=== PATIENT | female | born 2000 | race American Indian/Alaskan Native ===

== ENCOUNTER 2019-08-04 10:09 | Emergency (ER) | payer MEDICAID ==
--- NOTE | 2019-08-04 13:40 | Emergency Department Report ---
ED Female HPI - General Chief complaint: Abdominal Pain Stated complaint: 15WKS PREG/STOMACH PAIN Time Seen by Provider: 08/04/19 12:35 Source: patient Mode of arrival: Ambulatory Limitations: No Limitations - History of Present Illness Initial comments: This is a 18-year-old -[place] female who presents to the emergency room with pelvic pain, vaginal discharge, hematuria, and urinary frequency for 1 day. Patient states she is 15 weeks . She is followed by an [facility] at [place]. Her last menstrual period was 03/23/2019, 1. She denies dysuria, fever, chills, back pain, nausea, or vomiting. MD Complaint: vaginal discharge, pelvic pain Onset/Timin -: days(s) Location: suprapubic Radiation: non-radiating Severity: moderate Severity scale (0 -10): 5 Quality: burning Worsens with: urination Are you Now?: Yes (15 weeks) Last Menstrual Period: 03/23/19 EDC: 12/28/19 Associated Symptoms: vaginal discharge, vaginal bleeding, abdominal pain, hematuria. denies: nausea/vomiting, fever/chills, headaches, dysuria, shortness of breath, weakness - Related Data Sexually active: Yes : 1 Para: 0 A: 0 Previous Rx's Medication Instructions Recorded Last Taken Type metroNIDAZOLE [Flagyl TAB] 500 mg PO Q12HR #14 tab 08/04/19 Unknown Rx Allergies Allergy/AdvReac Type Severity Reaction Status Date / Time No Known Allergies Allergy Unverified 08/04/19 10:43 ED Review of Systems ROS: Stated complaint: 15WKS PREG/STOMACH PAIN Other details as noted in HPI Constitutional: denies: chills, fever Respiratory: denies: cough, shortness of breath, wheezing Cardiovascular: denies: chest pain, palpitations Gastrointestinal: abdominal pain. denies: nausea, diarrhea Genitourinary: frequency, discharge. denies: urgency, dysuria Musculoskeletal: denies: back pain, joint swelling, arthralgia Skin: denies: rash, lesions Neurological: denies: headache, weakness, paresthesias Psychiatric: denies: anxiety, depression ED Past Medical Hx - Past Medical History Previous Medical History?: No - Surgical History Past Surgical History?: No - Medications Home Medications: Home Medications Medication Instructions Recorded Confirmed Last Taken Type metroNIDAZOLE [Flagyl TAB] 500 mg PO Q12HR #14 tab 08/04/19 Unknown Rx ED Physical Exam - General Limitations: No Limitations General appearance: alert, in no apparent distress - Respiratory Respiratory exam: Present: normal lung sounds bilaterally. Absent: respiratory distress - Cardiovascular Cardiovascular Exam: Present: regular rate, normal rhythm. Absent: systolic murmur, diastolic murmur, rubs, gallop - GI/Abdominal GI/Abdominal exam: Present: soft, normal bowel sounds. Absent: distended, tenderness, guarding, rebound, rigid, organomegaly - External exam: Present: normal external exam. Absent: erythema, swelling, lesions, bleeding Speculum exam: Present: vaginal discharge (malodorous yellowish discharge). Absent: erythema, cervical discharge, vaginal bleeding, foreign body, tissue, laceration Bi-manual exam: Present: normal bi-manual exam - Back Exam Back exam: Absent: CVA tenderness (R), CVA tenderness (L) - Neurological Exam Neurological exam: Present: alert, oriented X3, normal gait - Psychiatric Psychiatric exam: Present: normal affect, normal mood - Skin Skin exam: Present: warm, dry, intact, normal color. Absent: rash ED Course Vital Signs 08/04/19 10:27 Temperature 98.7 F Pulse Rate 83 Respiratory 16 Rate Blood Pressure 119/62 O2 Sat by Pulse 100 Oximetry ED Medical Decision Making - Lab Data Lab Results 08/04/19 08/04/19 Range/Units 13:54 13:57 HCG, Quant 01738 H (0-4) mIU/mL Urine Color Yellow (Yellow) Urine Turbidity Slightly-cloudy (Clear) Urine pH 7.0 (5.0-7.0) Ur Specific [place] 1.021 (1.003-1.030) Urine Protein <15 mg/dl (Negative) mg/dL Urine Glucose (UA) Neg (Negative) mg/dL Urine Ketones Neg (Negative) mg/dL Urine Blood Neg (Negative) Urine Nitrite Neg (Negative) Urine Bilirubin Neg (Negative) Urine Urobilinogen < 2.0 (<2.0) mg/dL Ur Leukocyte Esterase Neg (Negative) Urine WBC (Auto) 2.0 (0.0-6.0) /HPF Urine RBC (Auto) 5.0 (0.0-6.0) /HPF U Epithel Cells (Auto) 5.0 (0-13.0) /HPF Urine Bacteria (Auto) 1+ (Negative) /HPF Urine Mucus 2+ /HPF - Medical Decision Making This is a 18-year-old female that presents to the emergency room with vaginal discharge, hematuria, urinary frequency, and suprapubic pain. Patient is 15 weeks and followed by [facility] at [facility]. Pelvic exam was performed. Labs were obtained. On exam patient was nontender abdomen. Urinalysis unremarkable. test positive. Patient denies use of pads and reports bleeding is only with wipes. Urinalysis negative for blood. Wet prep positive for clue cells, negative Trichomonas and yeast. Gonorrhea and chlamydia is pending. Due to patient admitting risk of sexually transmitted disease she will be treated treated for gonorrhea and chlamydia. Start metronidazole for bacterial vaginitis. Patient instructed to follow-up with [place] [facility] in 2-3 days. Patient discharged home stable. She was also given strict return instructions. Critical care attestation.: If time is entered above; I have spent that time in minutes in the direct care of this critically ill patient, excluding procedure time. ED Disposition Clinical Impression: Pelvic cramping, Acute cervicitis, Bacterial vaginosis in Vaginal discharge during Qualifiers: Trimester: first trimester Qualified Code(s): O26.891 - Other specified related conditions, first trimester; N89.8 - Other specified noninflammatory disorders of vagina Disposition: DC- TO HOME OR SELFCARE Is pt being admited?: No Condition: Stable Instructions: Abdominal Pain (ED), Cervicitis (ED), Bacterial Vaginosis (ED) Additional Instructions: Complete full course of antibiotics as prescribed. Continue safe sexual intercourse. Follow up with [facility]. Return to the emergency room if you notice vaginal bleeding, severe abdominal pain, and back pain. Prescriptions: metroNIDAZOLE [Flagyl TAB] 500 mg PO Q12HR #14 tab [facility]: [facility] [Primary Care Provider] - 3-5 Days Forms: STI Treatment and Prevention Time of Disposition: 15:24
[2019-08-04 14:16] LABS: Bacteria,Urine 1+ /HPF (Negative); Bilirubin,Urine NEG (Negative); Blood,Urine NEG (Negative); Color,Urine Yellow (Yellow); Mucus,Urine 2+ /HPF; Protein,Urine <15 mg/dL mg/dL (Negative); Urobilinogen,Urine < 2.0 mg/dL (<2.0)
[2019-08-04] MEDS ORDERED: AZITHROMYCIN 250 MG TAB PO ONE (15:25)
[2019-08-04] MEDS ORDERED: LIDOCAINE-MPF (1%) 10 MG/1 ML VIAL 5 ML INFILTRATI ONE (15:25)
[2019-08-04 16:16] VITALS: BP 118/58
== END 2019-08-04 16:15 | disposition home or self-care (01) ==
LOC: ED 10:09
DX: O23.592 Infection of other part of genital tract in pregnancy, second trimester (principal); O23.512 Infections of cervix in pregnancy, second trimester; Z79.899 Other long term (current) drug therapy; Z3A.15 15 weeks gestation of pregnancy
CPT/HCPCS: 36415; 81001; 84702; 87210; 87591; 96372; 99284; J0696

== ENCOUNTER 2019-11-19 13:07 | Outpatient (CLI) | payer MEDICAID ==
[2019-11-19 14:57] LABS: Bacteria,Urine 1+ /HPF (Negative); Bilirubin,Urine NEG (Negative); Blood,Urine NEG (Negative); Color,Urine Yellow (Yellow); Mucus,Urine 1+ /HPF; Protein,Urine <15 mg/dL mg/dL (Negative)
[2019-11-19] MEDS ORDERED: LACTATED RINGERS 500 ML IV ONE (15:10)
[2019-11-19 15:45] VITALS: BP 108/75
[2019-11-19] MEDS ORDERED: LACTATED RINGERS 1,000 ML IV ONE (16:11)
--- NOTE | 2019-11-19 16:55 | Event Note ---
Date: 11/19/19 fht cat 1, BPP 02/12, pt now reporting + FM. she c/o pelvic pain and back pain x 1 week. UA normal, no ctx noted on toco. Abd palpated soft and nontender. pt refused SVE. no bleeding or leaking fluid. Discussed normal discomforts of third trimester. all questions addressed. plan to d/c home with f/u in office.
--- NOTE | 2019-11-19 18:22 | Ultrasound Report ---
Biophysical profile INDICATION: well-being. Patient is approximately 32 weeks . COMPARISON: None FINDINGS: breathing movement: 2/2 movement: 2/2 posture and tone: 2/2 Qualitative amniotic fluid volume: 2/2 IMPRESSION: Total score for biophysical profile is 8/8 heart rate is 152 bpm Signer Name: Francisco Hammond MD Signed: 11/19/2019 6:18 PM Workstation Name: [email or web address]
== END 2019-11-19 17:50 | disposition home or self-care (01) ==
LOC: TRG 13:07 → APU 13:10 → TRG 17:50
PROVIDERS: ATTEND Obstetrics & Gynecology
DX: O62.9 Abnormality of forces of labor, unspecified (principal); Z3A.32 32 weeks gestation of pregnancy
CPT/HCPCS: 59025; 76819; 81001; 96360; J7120; Q0177

== ENCOUNTER 2019-11-21 10:07 | Outpatient (CLI) | payer MEDICAID ==
[2019-11-21 10:31] VITALS: BP 137/55
[2019-11-21] MEDS ORDERED: LACTATED RINGERS 500 ML IV ONE (11:00)
--- NOTE | 2019-11-21 11:00 | Event Note ---
Date: 11/21/19 (LOF, ctxs) Pt is a 19 y.o. @ 32+ wks with c/o LOF, ctxs since 399. States that she noticed the leaking and also states " my mucous plug has come out". Currently there are no ctxs noted on monitor and non palpated. Examination revealed: Nitrazine negative, Cervix: cl/th/hi, no pooling noted. Will give bolus of IV fluids, Extra Strength Tylenol, and get an ANUPAMA. Explained findings to patient. Will continue to monitor patient and await results of ANUPAMA before disposition.
--- NOTE | 2019-11-21 13:04 | Ultrasound Report ---
Limited OB ultrasound for ANUPAMA FINDINGS: ANUPAMA is near the lower limit of normal at 9.1 cm. Signer Name: Jose A Stephenson MD Signed: 11/21/2019 1:00 PM Workstation Name: [id number]
[2019-11-21] MEDS ORDERED: ACETAMINOPHEN 500 MG TAB PO ONE (14:00)
== END 2019-11-21 14:37 | disposition home or self-care (01) ==
LOC: TRG 10:07 → APU 10:08 → TRG 14:37
PROVIDERS: ATTEND Obstetrics & Gynecology
DX: O42.913 Preterm premature rupture of membranes, unspecified as to length of time between rupture and onset of labor, third trimester (principal); O62.9 Abnormality of forces of labor, unspecified; O26.893 Other specified pregnancy related conditions, third trimester; R10.84 Generalized abdominal pain; Z3A.32 32 weeks gestation of pregnancy
CPT/HCPCS: 59025; 76815; 96360; J7120

== ENCOUNTER 2020-12-21 21:45 | Emergency (ER) | payer MEDICAID ==
[2020-12-22 00:28] VITALS: BP 117/68
[2020-12-22 00:55] LABS: Basophils % (Auto) 0.6 % (0.0-1.8); Eosinophils % (Auto) 0.4 % (0.0-4.3); Hematocrit 34.5 % (30.3-42.9); Hemoglobin 11.1 gm/dl (10.1-14.3); Lymphocytes # (Auto) 2.3 K/mm3 (1.2-5.4); Lymphocytes % (Auto) 28.6 % (13.4-35.0); Mean Corpuscular HGB Conc 32 % (30-34); Mean Corpuscular Volume 87 fl (79-97); Monocytes # (Auto) 0.6 K/mm3 (0.0-0.8); Monocytes % (Auto) 7.7 % (0.0-7.3); Platelet Count 299 K/mm3 (140-440); Red Blood Count 3.98 M/mm3 (3.65-5.03); Red Cell Distribution Width 13.8 % (13.2-15.2)
--- NOTE | 2020-12-22 02:11 | Emergency Department Report ---
ED Female HPI - General Chief complaint: Vaginal Bleeding Stated complaint: 16WKS PREG/BLEEDING Time Seen by Provider: 12/22/20 01:33 Source: patient Mode of arrival: Ambulatory Limitations: No Limitations - History of Present Illness Initial comments: 20-year-old F Beninese female [facility] emerge department complaining of a 2-day history 1 pad per hour vaginal bleeding which is associated with hives. Patient states that when she developed she began having some heavy heavy bleeding and cramping sensation associated with some dysuria. Positive fever, chills, sweats. No chest pain or palpitation no nausea or vomiting. She reports no odynophagia no dysphagia no allergic reaction irritant/stimulant. MD Complaint: vaginal bleeding, pelvic pain -: Gradual - Related Data Previous Rx's Medication Instructions Recorded Last Taken Type metroNIDAZOLE [Flagyl TAB] 500 mg PO Q12HR #14 tab 08/04/19 Unknown Rx Ibuprofen [Motrin 800 MG tab] 800 mg PO Q8HR PRN #30 tablet 01/22/20 Unknown Rx Lidocain2.5%/Prilocai2.5% [Emla] 5 gm TP ONCE PRN #1 tube 01/22/20 Unknown Rx Allergies Allergy/AdvReac Type Severity Reaction Status Date / Time No Known Allergies Allergy Unverified 11/21/19 10:31 ED Review of Systems ROS: Stated complaint: 16WKS PREG/BLEEDING Other details as noted in HPI Comment: All other systems reviewed and negative ED Past Medical Hx - Past Medical History Previous Medical History?: Yes Hx Hypertension: No Hx Heart Attack/AMI: No Hx Diabetes: No Hx Deep Vein Thrombosis: No Hx Liver Disease: No Hx Renal Disease: No Hx Sickle Cell Disease: No Hx Seizures: No Hx Asthma: Yes Hx COPD: No Hx HIV: No - Surgical History Past Surgical History?: Yes Hx Pacemaker: No Hx Internal Defibrillator: No - Social History Smoking Status: Never Smoker Substance Use Type: None - Medications Home Medications: Home Medications Medication Instructions Recorded Confirmed Last Taken Type metroNIDAZOLE [Flagyl TAB] 500 mg PO Q12HR #14 tab 08/04/19 Unknown Rx Ibuprofen [Motrin 800 MG tab] 800 mg PO Q8HR PRN #30 tablet 01/22/20 Unknown Rx Lidocain2.5%/Prilocai2.5% [Emla] 5 gm TP ONCE PRN #1 tube 01/22/20 Unknown Rx ED Physical Exam - General Limitations: No Limitations General appearance: alert, in no apparent distress - Head Head exam: Present: atraumatic, normocephalic - Eye Eye exam: Present: normal appearance, PERRL, EOMI - ENT ENT exam: Present: mucous membranes moist - Neck Neck exam: Present: normal inspection - Respiratory Respiratory exam: Present: normal lung sounds bilaterally. Absent: respiratory distress - Cardiovascular Cardiovascular Exam: Present: regular rate, normal rhythm. Absent: systolic murmur, diastolic murmur, rubs, gallop - GI/Abdominal GI/Abdominal exam: Present: soft, normal bowel sounds - Extremities Exam Extremities exam: Present: normal inspection - Back Exam Back exam: Present: normal inspection - Neurological Exam Neurological exam: Present: alert, oriented X3 - Psychiatric Psychiatric exam: Present: normal affect, normal mood - Skin Skin exam: Present: warm, dry, intact, normal color. Absent: rash ED Course Vital Signs 12/22/20 00:24 Temperature 98.8 F Pulse Rate 76 Respiratory 16 Rate Blood Pressure 117/68 O2 Sat by Pulse 99 Oximetry ED Medical Decision Making - Lab Data Result diagrams: 12/22/20 00:42 Lab Results 12/22/20 12/22/20 Range/Units 00:42 00:42 WBC 7.9 (4.5-11.0) K/mm3 RBC 3.98 (3.65-5.03) M/mm3 Hgb 11.1 (10.1-14.3) gm/dl Hct 34.5 (30.3-42.9) % MCV 87 (79-97) fl MCH 28 (28-32) pg MCHC 32 (30-34) % RDW 13.8 (13.2-15.2) % Plt Count 299 (140-440) K/mm3 Lymph % (Auto) 28.6 (13.4-35.0) % [place] % (Auto) 7.7 H (0.0-7.3) % Eos % (Auto) 0.4 (0.0-4.3) % Baso % (Auto) 0.6 (0.0-1.8) % Lymph # (Auto) 2.3 (1.2-5.4) K/mm3 [place] # (Auto) 0.6 (0.0-0.8) K/mm3 Eos # (Auto) 0.0 (0.0-0.4) K/mm3 Baso # (Auto) 0.0 (0.0-0.1) K/mm3 Seg Neutrophils % 62.7 (40.0-70.0) % Seg Neutrophils # 4.9 (1.8-7.7) K/mm3 HCG, Quant 41874 H (0-4) mIU/mL Lab Results 12/22/20 12/22/20 Range/Units 00:42 00:42 WBC 7.9 (4.5-11.0) K/mm3 RBC 3.98 (3.65-5.03) M/mm3 Hgb 11.1 (10.1-14.3) gm/dl Hct 34.5 (30.3-42.9) % MCV 87 (79-97) fl MCH 28 (28-32) pg MCHC 32 (30-34) % RDW 13.8 (13.2-15.2) % Plt Count 299 (140-440) K/mm3 Lymph % (Auto) 28.6 (13.4-35.0) % [place] % (Auto) 7.7 H (0.0-7.3) % Eos % (Auto) 0.4 (0.0-4.3) % Baso % (Auto) 0.6 (0.0-1.8) % Lymph # (Auto) 2.3 (1.2-5.4) K/mm3 [place] # (Auto) 0.6 (0.0-0.8) K/mm3 Eos # (Auto) 0.0 (0.0-0.4) K/mm3 Baso # (Auto) 0.0 (0.0-0.1) K/mm3 Seg Neutrophils % 62.7 (40.0-70.0) % Seg Neutrophils # 4.9 (1.8-7.7) K/mm3 HCG, Quant 64467 H (0-4) mIU/mL - Radiology Data Radiology results: report reviewed [address] [place] [address] Ultrasound Report Signed Patient: ELIS MCLEAN MR#: [id number] : 2000 Acct:[id number] Age/Sex: 20 / F ADM Date: 12/21/20 Loc: ED Attending Dr: Ordering Physician: ANTHONY MAHAN III, MD Date of Service: 12/22/20 Procedure(s): US OB >= 14 weeks Fetus Accession Number(s): [id number] cc: ANTHONY MAHAN III, MD ULTRASOUND OBSTETRIC INDICATION: Vaginal bleeding and COMPARISON: Obstetrical ultrasound, 11/21/2019 Findings: There is a single intrauterine . BPD = 3.6 cm = 17 weeks, 0 day(s). Head circumference = 12.6 cm = 16 weeks, 2 day(s). Abdominal circumference = 9.8 cm = 15 weeks, 6 day(s). Femur length = 1.9 cm = 15 weeks, 4 day(s). Overall estimated sonographic age = 16 weeks, 1 day(s). heart rate is 156 beats per minute. Estimated weight is 135 grams position is cephalic. Cervix appears closed. Cervical length measures 3.6 cm. Placenta is anterior and grade 0 . Amniotic fluid volume appears within normal limits. Impression: 1. Single living intrauterine with estimated sonographic age of 16 weeks, 1 day(s). Signer Name: Eve Yoder MD Signed: 12/22/2020 3:50 AM Workstation Name: [id number] Transcribed By: EB Dictated By: Eve Yoder MD Electronically Authenticated By: Eve Yoder MD Signed Date/Time: 12/22/20349 DD/ 5 TD/TT: Print Cancel [address] [place] [address] Ultrasound Report Signed Patient: ELIS MCLEAN MR#: [id number] : 2000 Acct:[id number] Age/Sex: 20 / F A DM Date: 12/21/20 Loc: ED Attending Dr: Ordering Physician: ANTHONY MAHAN III, MD Date of Service: 12/22/20 Procedure(s): US OB >= 14 weeks Fetus Accession Number(s): [id number] cc: ANTHONY MAHAN III, MD ULTRASOUND OBSTETRIC INDICATION: Vaginal bleeding and COMPARISON: Obstetrical ultrasound, 11/21/2019 Findings: There is a single intrauterine . BPD = 3.6 cm = 17 weeks, 0 day(s). Head circumference = 12.6 cm = 16 weeks, 2 day(s). Abdominal circumference = 9.8 cm = 15 weeks, 6 day(s). Femur length = 1.9 cm = 15 weeks, 4 day(s). Overall estimated sonographic age = 16 weeks, 1 day(s). heart rate is 156 beats per minute. Estimated weight is 135 grams position is cephalic. Cervix appears closed. Cervical length measures 3.6 cm. Placenta is anterior and grade 0 . Amniotic fluid volume appears within normal limits. Impression: 1. Single living intrauterine with estimated sonographic age of 16 weeks, 1 day(s). Signer Name: Eve Yoder MD Signed: 12/22/2020 3:50 AM Workstation Name: [id number] Transcribed By: ZURDO Dictated By: Eve Yoder MD Electronically Authenticated By: Eve Yoder MD Signed Date/Time: 12/22/20349 DD/ 5 TD/TT: Print Cancel - Medical Decision Making this patient presents with vaginal bleeding in the second trimester, differential diagnosis includes ectopic , IUP, month th reatened/inevitable , along with a completed . Patient is HDS and without a history of coagulopathy or infectious symptoms. The ultrasound does reveal an IUP at 16 weeks with an elevated hCG quant Based on exam history and ED work-up patient presentation is not consistent with an ectopic , life-threatening coagulopathy, trauma, serious bacterial infection, central process or other emergency Critical care attestation.: If time is entered above; I have spent that time in minutes in the direct care of this critically ill patient, excluding procedure time. ED Disposition Clinical Impression: Threatened miscarriage Disposition: DC-01 TO HOME OR SELFCARE Is pt being admited?: No Does the pt Need Aspirin: No Condition: Stable Instructions: Threatened Miscarriage, Vaginal Bleeding During , Second Trimester Additional Instructions: To be sure to follow-up with Dr. Disla [facility] for reevaluation currently all is well with the ultrasound with heart rate of 156 Referrals: [facility] [Provider Group] - 3-5 Days ANNAMARIA CHESTER MD [Primary Care Provider] - 3-5 Days Forms: AMA Form
--- NOTE | 2020-12-22 03:54 | Ultrasound Report ---
ULTRASOUND OBSTETRIC INDICATION: Vaginal bleeding and COMPARISON: Obstetrical ultrasound, 11/21/2019 Findings: There is a single intrauterine . BPD = 3.6 cm = 17 weeks, 0 day(s). Head circumference = 12.6 cm = 16 weeks, 2 day(s). Abdominal circumference = 9.8 cm = 15 weeks, 6 day(s). Femur length = 1.9 cm = 15 weeks, 4 day(s). Overall estimated sonographic age = 16 weeks, 1 day(s). heart rate is 156 beats per minute. Estimated weight is 135 grams position is cephalic. Cervix appears closed. Cervical length measures 3.6 cm. Placenta is anterior and grade 0 . Amniotic fluid volume appears within normal limits. Impression: 1. Single living intrauterine with estimated sonographic age of 16 weeks, 1 day(s). Signer Name: Eve Yoder MD Signed: 12/22/2020 3:50 AM Workstation Name: [id number]
== END 2020-12-22 04:03 | disposition home or self-care (01) ==
LOC: ED 21:45
DX: O20.0 Threatened abortion (principal); Z79.899 Other long term (current) drug therapy; Z3A.16 16 weeks gestation of pregnancy
CPT/HCPCS: 36415; 76805; 84702; 85025; 86900; 86901

== ENCOUNTER 2021-01-24 09:25 | Inpatient (IN) | payer MEDICAID ==
[2021-01-24] MEDS ORDERED: LACTATED RINGERS 500 ML IV ONE (10:06)
--- NOTE | 2021-01-24 10:59 | History and Physical Report ---
History of Present Illness Date of examination: 01/24/21 Chief complaint: vaginal bleeding >24hrs History of present illness: EDC Confirmation: 06/07/2021 Gestational Age: 5 weeks Past History : 2 Term Births: 1 Para: 1 Mult. Births: 0 Prev : 0 Prev. attempt? 0 Aborta: 0 Elect. Ab: 0 Spont. Ab: 0 Ectopics: 0 # 1 Delivery date: 01/21/2020 Weeks Gestation: 41 labor: no Delivery type: Vaginal Hours of labor: IOL Anesthesia type: epidural Delivery location: [facility] Infant Sex: male weight: 7.19 Name: Romulo Comments: none Risk Factors: Smoked Tobacco Use: Never smoker Smokeless Tobacco Use: Never Passive smoke exposure: yes Drug use: no HIV high-risk behavior: no Caffeine use: 0 drinks per day Alcohol use: no Exercise: no Seatbelt use: preg-mortgage counselor % Dietary Counseling: pn yes Past Medical History: Reviewed history from 08/24/2019 and no changes required: Negative Past Medical History Past Surgical History: Reviewed history from 08/24/2019 and no changes required: Negative Past Surgical History Past Medical History Abnormal PAP: negative JONELLE Exposure: negative Infertility: negative Uterine Anomaly: negative Uterine Surgery (not C/S): negative Other Gynecologic Problems: negative Social Hx: Patient is single Smoking History: Patient has never smoked. Infection History Hx of STD: + Chlamydia HIV Risk Eval: no Hepatitis B Risk Eval: low risk Personal hx. of genital herpes: no Partner hx. of genital herpes: no Rash, Viral, or Febrile illness since last LMP? no Varicella/Chicken Pox Status: Unknown TB Risk: no Genetic History Congenital Heart Defect: Mom: no Dad: no Migue Disease: Mom: no Dad: no Thalassemia Mom: no Dad: no Neural Tube Defect Mom: no Dad: no Down's Syndrome Mom: no Dad: no Arthur-Sachs Mom: no Dad: no Sickle Cell Disease/Trait Mom: no Dad: no Hemophilia Mom: no Dad: no Muscular Dystrophy Mom: no Dad: no Cystic Fibrosis Mom: no Dad: no Angelina Chorea Mom: no Dad: no Mental Retardation Mom: no Dad: no Fragile X Mom: no Dad: no Other Genetic/Chromosomal Disorder Mom: no Dad: no Child w/other defect Mom: no Dad: no Enviromental Exposures Xray Exposure: no Medication, drug, or alcohol use since LMP: no Chemical/Other Exposure: no Exposure to Cat Liter: no Hx of Parvovirus (Fifth Disease): no Occupational Exposure to Children: none Active Medications (reviewed today): ONDANSETRON 8 MG ORAL TABLET DISINTEGRATING (ONDANSETRON) 1 po q12hrs prn PLUS 27-1 MG ORAL TABLET ( VIT-FE FUMARATE-FA) 1 po RX 1 TABS ( VIT-FE FUMARATE-FA TABS) one po q day PRE- TABS ( [id number]) T1 PO QD PNV () Current Allergies (reviewed today): No known allergies Past History Past Medical History: other (see HPI) Past Surgical History: other (see HPI) 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) Family/Genetic History: other (see HPI) Social history: no significant social history - Obstetrical History Expected Date of Delivery: 06/07/21 Actual Gestation: 20 Week(s) 6 Day(s) : 2 Para: 1 Hx # Term Pregnancies: 1 Number of Pregnancies: 0 Spontaneous Abortions: 0 Induced : 0 Number of Living Children: 1 Medications and Allergies Allergies Allergy/AdvReac Type Severity Reaction Status Date / Time pickles Allergy Mild Hives Uncoded 01/24/21 09:51 Home Medications Medication Instructions Recorded Confirmed Last Taken Type metroNIDAZOLE [Flagyl TAB] 500 mg PO Q12HR #14 tab 08/04/19 Unknown Rx Ibuprofen [Motrin 800 MG tab] 800 mg PO Q8HR PRN #30 tablet 01/22/20 Unknown Rx Lidocain2.5%/Prilocai2.5% [Emla] 5 gm TP ONCE PRN #1 tube 01/22/20 Unknown Rx Review of Systems All systems: negative - Vital Signs Vital signs: Vital Signs Pulse Pulse Ox 89 98 01/24/21 09:41 01/24/21 09:41 Temp Pulse Resp BP Pulse Ox 98.4 F 86 106/70 99 01/24/21 09:49 01/24/21 10:56 01/24/21 09:42 01/24/21 10:56 - Physical Exam Breasts: Positive: normal Cardiovascular: Regular rate Lungs: Positive: Clear to auscultation, Normal air movement Abdomen: Positive: normal appearance, soft Genitourinary (Female): Positive: normal external genitalia, normal perenium Vulva: both: normal Vagina: Positive: other (moderate bleeding) Uterus: Positive: normal size, normal contour Anus/Rectum: Positive: normal perianal skin Extremities: Positive: normal Deep Tendon Reflex Grade: Normal +2 - Obstetrical FHR: auscultation normal Uterine Contraction Monitor Mode: External Cervical Dilatation: 0 Uterine Tone Measurement Phase: Resting Results All other labs normal. Assessment and Plan pt called the office 24hrs ago with c/o vaginal bleeding @ 20+ weeks. She was instructed to go to [facility] for evaluation, she arrived today with same complaints. She reports feeling "labor pains." pt denies recent sex or medication. u/s shows CL 1.2cms, normal ANUPAMA, size c/w dates. Funneling present, placenta posterior and Grade 0. Spec exam doen - Dark red blood noted,cervix appears closed no BOW protruding from cervix. SVE internal os closed. no abdominal tenderness, uterus palpated soft. VSSAF. UDS negative. Plan to admit, for monitoring. [facility]. Expectations discussed with patent regarding extreme prematurity and survival if born today. All questions addressed. Dr. Reddy consulted. - Patient Problems (1) 20 weeks gestation of Current Visit: Yes Status: Acute (2) Short cervix during in second trimester Current Visit: Yes Status: Acute (3) Vaginal bleeding before 22 weeks gestation Current Visit: Yes Status: Acute
[2021-01-24] MEDS ORDERED: ACETAMINOPHEN 325 MG TAB PO PRN (11:00)
[2021-01-24] MEDS ORDERED: ALUM-MAG HYDROXIDE-SIMETHICONE 200-200-20MG/5ML ORAL LIQD 30 ML PO PRN (11:30)
[2021-01-24] MEDS ORDERED: diphenhydrAMINE 25 MG CAP PO PRN (11:30)
[2021-01-24] MEDS ORDERED: DOCUSATE SODIUM 100 MG CAP PO PRN (11:30)
[2021-01-24] MEDS ORDERED: SIMETHICONE 80 MG CHEW TAB PO PRN (11:30)
[2021-01-24] MEDS ORDERED: SODIUM CHLORIDE NASAL SPRAY 44ML NS PRN (11:30)
[2021-01-24] MEDS ORDERED: ONDANSETRON 4 MG/2 ML INJ IV PRN (11:30)
[2021-01-24 11:34] LABS: Bilirubin,Urine NEG (Negative); Blood,Urine LG (Negative); Color,Urine Yellow (Yellow); Mucus,Urine FEW /HPF
[2021-01-24 11:48] LABS: RBC,Urine > 182.0 /HPF (0.0-6.0); WBC,Urine < 1.0 /HPF (0.0-6.0)
[2021-01-24 11:50] LABS: Amphetamine Screen,Urine Negative; Benzodiazepines Screen,Urine Negative; Cannabinoid Screen,Urine Negative; Cocaine Screen,Urine Negative; Methadone Screen,Urine Negative; Opiate Screen,Urine Negative
--- NOTE | 2021-01-24 11:54 | Ultrasound Report ---
ULTRASOUND OBSTETRIC INDICATION / CLINICAL INFORMATION: vaginal bleeding ptl. Clinical Gestational Age (GA): 20.6 weeks.days TECHNIQUE: Transabdominal. COMPARISON: 12/22/2020 FINDINGS: There is a single intrauterine . Biparietal Diameter = 5 cm = 21.1 weeks.days Head Circumference = 18.4 cm = 20.5 weeks.days Abdominal Circumference = 15.2 cm = 20.3 weeks.days Femur Length = 3.8 cm = 22.2 weeks.days Average Ultrasound Age (AUA) = 21.1 weeks.days Heart Rate: 165 beats per minute. Estimated Weight in grams (if calculated): 406 Estimated Weight Growth Percentile (if calculated): 64 Position: cephalic. Cervix: Some funneling. Length in cm (if measured): 1.2 Placenta: posterior and free of the os. Amniotic Fluid Volume: Subjectively normal Maternal Adnexa: Not visualized IMPRESSION: 1. Single, living intrauterine with estimated sonographic age of 21.1 weeks.days 2. The cervical length only measures 1.2 cm Signer Name: Justin Lozano MD Signed: 01/24/2021 11:50 AM Workstation Name: [id number]
[2021-01-24] MEDS ORDERED: BUTORPHANOL 2 MG/1 ML INJ ONE (16:13)
[2021-01-24] MEDS ORDERED: BUTORPHANOL 2 MG/1 ML INJ IV ONE (16:30)
[2021-01-24 16:51] LABS: Basophils # (Auto) 0.1 K/mm3 (0.0-0.1); Basophils % (Auto) 0.5 % (0.0-1.8); Eosinophils % (Auto) 0.3 % (0.0-4.3); Hematocrit 32.6 % (30.3-42.9); Hemoglobin 10.5 gm/dl (10.1-14.3); Lymphocytes # (Auto) 1.6 K/mm3 (1.2-5.4); Lymphocytes % (Auto) 14.7 % (13.4-35.0); Mean Corpuscular HGB Conc 32 % (30-34); Mean Corpuscular Volume 89 fl (79-97); Monocytes # (Auto) 0.6 K/mm3 (0.0-0.8); Monocytes % (Auto) 5.3 % (0.0-7.3); Platelet Count 230 K/mm3 (140-440); Red Blood Count 3.66 M/mm3 (3.65-5.03); Red Cell Distribution Width 14.1 % (13.2-15.2)
--- NOTE | 2021-01-24 18:05 | Event Note ---
Date: 01/24/21 As per RN Sujey pt noted to have cervical change. Will hold epidural a this time. I d/w that she is likely going to have a miscarriage and may have an impending infection that is causing the labor or cervical incompetence. I also d/w that due to the prematurity and gestational age the baby's lungs are not developed enough to survive outside of the womb. I advised that we will not give her meds that would progress her labor unless she showed signs of infection or sepsis. Will start ampicillin at this time as well as give fluid bolus in attempt to decrease contractions. All questions were addressed and answered.
[2021-01-24] MEDS ORDERED: fentaNYL 100 MCG/2 ML INJ IV ONE ×2 (19:00→20:28)
[2021-01-24] MEDS ORDERED: AMPICILLIN/NS 2 GM/100 ML 2 GM/100 ML BAG IV SCH (19:00)
[2021-01-24] MEDS ORDERED: MAGNESIUM HYDROXIDE (MOM) ORAL LIQD UDC PO PRN (22:00)
[2021-01-24] MEDS ORDERED: LACTATED RINGERS 1,000 ML ONE (22:45)
[2021-01-24] MEDS ORDERED: fentaNYL 100 MCG/2 ML INJ ONE (22:57)
[2021-01-24] MEDS ORDERED: LACTATED RINGERS 1,000 ML IV SCH (23:15)
[2021-01-24] MEDS ORDERED: OXYTOCIN DRIP 30,000 MILLIUNITS/500 ML BAG IV ONE (23:35)
[2021-01-25] MEDS ORDERED: fentaNYL 100 MCG/2 ML INJ IV SCH
--- NOTE | 2021-01-25 00:14 | Procedure Note ---
OB Delivery Note - Delivery Date of Delivery: 01/24/21 Medical Office Manager: SALINA ROLLE Estimated blood loss: <100cc - Vaginal Delivery presentation: breech Intrapartum events: labor-<37 weeks, foul smelling fluid, placenta previa Delivery induction: none Delivery monitor: external uterine Route of delivery: Delivery placenta: spontaneous Episiotomy: none Delivery laceration: none Anesthesia: intravenous Delivery comments: patient c/o intense rectal pressure, SROM foul smelling brown fluid immediately prior to of baby girl. baby placed on mother's chest, mother encouraged to speak to baby and provide comfort. 3 vessel cord. placenta del intact and appears to be complete, several large clots delivered with placenta. Placenta to pathology. EBL ~100. pt verbalized understanding that baby is too premature to survive even with the most advanced care at this gestation. - A at 1 minute: 2 at 5 minutes: 2 Infant Gender: Female
[2021-01-25] MEDS ORDERED: IBUPROFEN 800 MG TAB ONE (01:52)
[2021-01-25] MEDS ORDERED: PROMETHAZINE 25 MG TAB PO PRN (01:57)
[2021-01-25] MEDS ORDERED: diphenhydrAMINE 25 MG CAP PO PRN (01:57)
[2021-01-25] MEDS ORDERED: WITCH HAZEL/ GLYCERIN PAD TP PRN (01:57)
[2021-01-25] MEDS ORDERED: MAGNESIUM HYDROXIDE (MOM) ORAL LIQD UDC PO PRN (01:57)
[2021-01-25] MEDS ORDERED: OXYTOCIN DRIP 30 UNITS/500 ML BAG IV SCH (01:57)
[2021-01-25] MEDS ORDERED: IBUPROFEN 600 MG TAB PO SCH (01:57)
[2021-01-25] MEDS: IBUPROFEN 800 MG TAB PO SCH ×2 (08:16→15:30)
--- NOTE | 2021-01-25 08:25 | Progress Note ---
Assessment and Plan Pt laying in bed resting without complaints. Pt reports ambulating, voiding, eating, and hydrating without difficulty since delivery; expresses desires for discharge home today. Fundus firm and below umbilicus with small vaginal bleeding noted on pad, VSS. Pt reports she passed several "small" less than quarter sized clots with her last void. Discharge teaching given and precautions reviewed. Pt confirms +support system and transportation available for discharge home. POC reviewed with RN and pt for post delivery H&H. Will reevaluate POC for discharge at 12hrs . - Patient Problems (1) delivery Current Visit: Yes Status: Acute Subjective - Subjective Date of service: 01/25/21 Principal diagnosis: PTD Patient reports: appetite normal, voiding normally, pain well controlled, ambulating normally : Objective - Vital Signs Latest vital signs: Vital Signs Temp Pulse Resp BP BP Pulse Ox 01/25/21 08:16 16 01/25/21 05:03 98.8 F 71 16 112/76 01/25/21 04:52 77 102/59 01/25/21 02:20 98.3 F 80 18 102/53 96 01/25/21 02:00 18 01/25/21 00:50 74 97/55 01/25/21 00:35 79 96/54 01/25/21 00:20 83 100/59 01/24/21 23:07 18 01/24/21 23:02 77 102/56 01/24/21 20:45 18 01/24/21 19:35 87 98/58 01/24/21 19:24 88 91 01/24/21 19:17 82 L 01/24/21 19:02 84 85 01/24/21 18:57 94 H 82 L 01/24/21 18:56 90 99 01/24/21 18:51 95 H 99 01/24/21 18:46 89 99 01/24/21 18:41 92 H 98 01/24/21 18:36 88 99 01/24/21 18:31 88 96 01/24/21 18:26 99 H 99 01/24/21 18:21 85 100 01/24/21 18:16 86 100 01/24/21 18:11 91 H 100 01/24/21 18:06 97 H 99 01/24/21 18:01 83 99 07/20/21 17:56 81 99 07/20/21 17:51 84 99 07/20/21 17:46 85 99 07/20/21 17:41 90 99 07/20/21 17:36 80 98 07/20/21 17:31 84 98 07/20/21 17:26 83 97 07/20/21 17:21 81 96 07/20/21 17:16 82 96 07/20/21 17:11 83 96 07/20/21 17:06 80 97 07/20/21 17:01 82 97 07/20/21 16:56 81 96 07/20/21 16:51 81 96 07/20/21 16:46 83 96 07/20/21 16:41 80 96 07/20/21 16:37 81 92 07/20/21 16:36 81 93 07/20/21 16:31 79 96 07/20/21 16:27 73 94 07/20/21 16:26 72 95 07/20/21 16:25 76 109/67 07/20/21 16:23 98.7 F 76 20 109/67 95 07/20/21 16:16 20 07/20/21 12:31 97.8 F 82 20 105/56 07/20/21 11:56 82 108/59 07/20/21 11:47 71 105/56 07/20/21 11:11 78 99 07/20/21 11:06 80 99 07/20/21 11:01 84 100 07/20/21 10:56 86 99 07/20/21 10:51 85 97 07/20/21 10:46 78 98 07/20/21 10:41 83 98 07/20/21 10:36 79 99 07/20/21 10:31 90 97 07/20/21 10:26 83 97 07/20/21 10:21 82 98 07/20/21 10:16 86 97 07/20/21 10:11 87 96 07/20/21 10:06 90 96 07/20/21 10:01 89 97 07/20/21 09:56 89 98 07/20/21 09:51 86 98 07/20/21 09:49 98.4 F 07/20/21 09:46 86 98 07/20/21 09:42 89 106/70 07/20/21 09:41 89 98 Intake and Output 07/20/21 07/21/21 07/21/21 23:59 07:59 15:59 Output Total 600 Balance -600 Output: Urine 600 Void 600 Other: Total, Output Amount 600 # Voids Void 1 1 Estimated Blood Loss 100 - Exam Breasts: Present: normal Cardiovascular: Present: Regular rate Lungs: Present: Clear to auscultation, Normal air movement Abdomen: Present: normal appearance, soft Vulva: both: normal Uterus: Present: normal, firm, fundal height below umbilicus Extremities: Present: normal Comments: small vaginal bleeding amount noted on pad - Labs Labs: Abnormal lab results 01/24/21 01/24/21 Range/Units 10:35 15:19 Seg Neutrophils % 79.2 H (40.0-70.0) % Seg Neutrophils # 8.5 H (1.8-7.7) K/mm3 Urine pH 8.0 H (5.0-7.0)
[2021-01-25] MEDS ORDERED: PRENATAL VIT27-FE FUMARATE-FOLIC ACID VIT TAB PO SCH (10:00)
[2021-01-25 13:26] LABS: Hematocrit 29.4 % (30.3-42.9); Hemoglobin 9.6 gm/dl (10.1-14.3)
--- NOTE | 2021-01-25 14:32 | Discharge Summary ---
Providers - Providers Date of Admission: 01/25/21 00:19 Date of discharge: 01/25/21 (pt desires discharge home) Attending physician: MISTY LEONARD Primary care physician: MISTY LEONARD Hospitalization Reason for admission: IUP - , vaginal bleeding Delivery: Episiotomy: none Laceration: none Other procedures: none complications: none Discharge diagnosis: delivery baby: female Condition at discharge: Good Disposition: DC-01 TO HOME OR SELFCARE - Discharge Diagnoses (1) delivery Status: Acute Plan - Provider Discharge Summary Activity: routine, no sex for 6 weeks, no heavy lifting 4 weeks, no strenuous exercise Diet: routine Instructions: routine Additional instructions: [] Smoking cessation referral if applicable(refer to patient education folder for contact #) [] Refer to [facility] Booklet Call your doctor immediately for: * Fever > 100.5 * Heavy vaginal bleeding ( >1 pad per hour) * Severe persistent headache * Shortness of breath * Reddened, hot, painful area to leg or breast * Drainage or odor from incision. * Keep incision clean and dry at all times and follow doctor's instructions regarding bathing/showering Please call [phone] and make a follow up appointment in 2-4 weeks. Thank you! - Follow up plan Follow up: MISTY LEONARD MD [Primary Care Provider] - 7 Days
[2021-01-25 16:45] VITALS: BP 101/56
[2021-01-26] MEDS ORDERED: TETANUS,DIPH,PERTUSS(ACELL) VACCINE 0.5 ML SYRINGE IM ONE (00:20)
== END 2021-01-25 16:45 | disposition home or self-care (01) | DRG 774 ==
LOC: TRG 09:25 → APU 09:26 → LD 10:06 → TRG 10:06 → OBSVTOIN 01-25 00:19 → OB 01-25 02:28
PROVIDERS: ADMIT Obstetrics & Gynecology; ATTEND Obstetrics & Gynecology
PROC: 10E0XZZ Delivery of Products of Conception, External Approach (ICD-10-PCS; principal; 2021-01-25)
PROC: 3E0234Z Introduction of Serum, Toxoid and Vaccine into Muscle, Percutaneous Approach (ICD-10-PCS; 2021-01-25)
DX: O60.12X0 Preterm labor second trimester with preterm delivery second trimester, not applicable or unspecified (principal); O44.02 Complete placenta previa NOS or without hemorrhage, second trimester; Z3A.20 20 weeks gestation of pregnancy; Z37.0 Single live birth; O26.872 Cervical shortening, second trimester; Z20.822 Contact with and (suspected) exposure to COVID-19; O32.1XX0 Maternal care for breech presentation, not applicable or unspecified; Z23 Encounter for immunization
CPT/HCPCS: 36415; 76816; 80307; 81001; 85014; 85018; 85025; 86850; 86900; 86901; 88305; G0378; J0290; J0595; J3010; Q0169; U0003

== ENCOUNTER 2021-12-16 13:09 | Outpatient (CLI) | payer MEDICAID ==
[2021-12-16 14:10] VITALS: BP 105/59
[2021-12-16 16:17] LABS: Hematocrit 26.9 % (30.3-42.9); Hemoglobin 8.7 gm/dl (10.1-14.3); Mean Corpuscular HGB Conc 33 % (30-34); Mean Corpuscular Volume 81 fl (79-97); Platelet Count 302 K/mm3 (140-440); Red Blood Count 3.32 M/mm3 (3.65-5.03); Red Cell Distribution Width 15.7 % (13.2-15.2)
[2021-12-16 16:41] LABS: Bacteria,Urine 1+ /HPF (Negative); Bilirubin,Urine SM (Negative); Blood,Urine NEG (Negative); Color,Urine Amber (Yellow); Ictotest,Urine Negative (Negative); Mucus,Urine 3+ /HPF; Protein,Urine <15 mg/dL mg/dL (Negative)
[2021-12-16 16:55] LABS: Alanine Aminotransferase 9 units/L (7-56); Albumin 3.4 g/dL (3.9-5); Blood Urea Nitrogen 4 mg/dL (7-17); Calcium 8.7 mg/dL (8.4-10.2); Hemolysis Index 1
[2021-12-16 16:57] LABS: BUN/Creatinine Ratio 13
--- NOTE | 2021-12-16 19:24 | Ultrasound Report ---
ULTRASOUND OBSTETRIC LIMITED INDICATION / CLINICAL INFORMATION: cervical length/ ANUPAMA. - Clinical Gestational Age (GA) in weeks, days: 28, 4 TECHNIQUE: Transabdominal and Transvaginal. COMPARISON: None available. FINDINGS: HEART RATE (beats per minute): 138 AMNIOTIC FLUID INDEX (cm) = 12.2 (normal = 7-24 cm) PRESENTATION: Cephalic. ADDITIONAL FINDINGS: Cervical length is 3.31 cm. IMPRESSION: 1. No acute sonographic abnormality. Signer Name: Gilberto Tomas MD Signed: 12/16/2021 7:20 PM Workstation Name: [id number]
== END 2021-12-16 17:19 | disposition home or self-care (01) ==
LOC: TRG 13:09 → LD 13:10 → TRG 17:19
PROVIDERS: ATTEND Student in an Organized Health Care Education/Training Program
DX: O09.893 Supervision of other high risk pregnancies, third trimester (principal); Z3A.28 28 weeks gestation of pregnancy
CPT/HCPCS: 36415; 59025; 76815; 80053; 81001; 85027; 87086

== ENCOUNTER 2022-01-02 18:24 | Outpatient (CLI) | payer MEDICAID ==
[2022-01-02 19:15] VITALS: BP 110/73
[2022-01-02] MEDS ORDERED: LACTATED RINGERS 1,000 ML ONE (19:31)
[2022-01-02 21:20] LABS: Bilirubin,Urine NEG (Negative); Blood,Urine NEG (Negative); Color,Urine Amber (Yellow)
[2022-01-02 21:22] LABS: Mucus,Urine FEW /HPF
== END 2022-01-02 22:13 | disposition home or self-care (01) ==
LOC: TRG 18:24 → APU 18:26 → TRG 22:13
PROVIDERS: ATTEND Obstetrics & Gynecology
DX: O26.893 Other specified pregnancy related conditions, third trimester (principal); R10.9 Unspecified abdominal pain; Z3A.31 31 weeks gestation of pregnancy
CPT/HCPCS: 81001